=== PATIENT | male | born 1975 | race Caucasian/White ===

== ENCOUNTER 2017-10-16 18:19 | Emergency (ER) | payer SELFPAY ==
[~2017-10-16] VITALS: Ht 172.7 cm; Wt 84.0 kg
[2017-10-16 18:22] VITALS: BP 120/80
== END 2017-10-16 20:24 | disposition left against medical advice (07) ==
LOC: ER 18:22
DX: F10.129 Alcohol abuse with intoxication, unspecified (principal); Z53.21 Procedure and treatment not carried out due to patient leaving prior to being seen by health care provider